=== PATIENT | female | born 1980 | race Caucasian/White ===

== ENCOUNTER 2016-10-28 13:21 | Emergency (ER) | payer OTHER ==
[2016-10-28 13:25] VITALS: BP 118/67; PULSE 87; RESP 20; TEMP 98.1
[2016-10-28] MEDS: HYDROcodone/APAP 5-325MG 1 EACH TAB PO STA (14:47)
[2016-10-28] MEDS: ORPHENADRINE 30 MG/ML 2 ML VIAL IM STA (14:47)
--- NOTE | 2016-10-28 14:49 | ED ---
Back Pain HPI - General Chief Complaint: Back Pain/Injury Stated Complaint: Low back pain Time Seen by Provider: 10/28/16 14:33 Source: patient, RN notes reviewed Limitations: no limitations - History of Present Illness Initial Comments: Patient is a 36-year-old female presents to the emergency room for evaluation of right-sided low back pain. Patient states around 8:00 this morning she was bending over to grab an object and went to stand up and felt a pop sensation in her right lower back. Patient states she's having constant sharp pain in her right lower back that is nonradiating. Patient denies any numbness or tingling in her legs. Patient denies saddle anesthesia. Patient denies urinary or fecal incontinence. Patient states she's having 10 out of 10 pain. Patient states she took 800 mg of ibuprofen with minimal relief of symptoms. Patient denies any recent falls or trauma to her back. Patient denies any other injuries during incident. - Related Data Previous Rx's Medication Instructions Recorded HYDROcodone/APAP 5-325MG [[place] 1 tab PO Q6HR PRN #12 tab 10/28/16 5-325] Orphenadrine [Norflex] 100 mg PO Q12H PRN #12 tablet.er 10/28/16 Allergies Allergy/AdvReac Type Severity Reaction Status Date / Time sulfamethoxazole Allergy Swelling Verified 10/28/16 13:25 [From Bactrim] trimethoprim [From Bactrim] Allergy Swelling Verified 10/28/16 13:25 Review of Systems ROS Statement: Those systems with pertinent positive or pertinent negative responses have been documented in the HPI. ROS Other: All systems not noted in ROS Statement are negative. Past Medical History Past Medical History: No Reported History History of Any Multi-Drug Resistant Organisms: None Reported Past Surgical History: Tubal Ligation Past Psychological History: No Psychological Hx Reported Smoking Status: Never smoker Past Alcohol Use History: None Reported Past Drug Use History: None Reported General Exam - General Exam Comments Initial Comments: Sitting on exam bed, no acute distress. Limitations: no limitations General appearance: alert, in no apparent distress Head exam: Present: atraumatic, normocephalic, normal inspection Eye exam: Present: normal appearance ENT exam: Present: normal exam Neck exam: Present: normal inspection Respiratory exam: Absent: respiratory distress Back exam: Present: normal inspection, paraspinal tenderness (Tenderness on palpating over the right lumbosacral spine. No vertebral tenderness. ) Neurological exam: Present: alert, oriented X3, CN II-XII intact Psychiatric exam: Present: normal affect, normal mood Skin exam: Present: warm, dry, intact, normal color. Absent: rash Course Vital Signs 10/28/16 13:23 Temperature 98.1 F Pulse Rate 87 Respiratory 20 Rate Blood Pressure 118/67 O2 Sat by Pulse 98 Oximetry Medical Decision Making - Medical Decision Making Patient is a 36-year-old female presents emergency room for evaluation of right- sided low back pain. Patient has no neuro deficits. Patient declined x-ray. Advised patient to return for worsening symptoms. Advised patient to follow-up with primary care provider for reevaluation in 1-2 days. Patient states she understands everything that was discussed with her. Case discussed with Dr. Ambrocio. Disposition Clinical Impression: Low back strain Disposition: HOME SELF-CARE Condition: Good Instructions: Acute Low Back Pain (ED) Additional Instructions: Take ibuprofen. Take pain medications as needed for severe pain. Please follow up with primary care provider in 1-2 days. If any new symptom arises or symptoms worsen, return to ER as soon as possible. Prescriptions: HYDROcodone/APAP 5-325MG [[place] 5-325] 1 tab PO Q6HR PRN #12 tab PRN Reason: Pain Orphenadrine [Norflex] 100 mg PO Q12H PRN #12 tablet.er PRN Reason: Pain Referrals: None,Stated [Primary Care Provider] - 1-2 days Time of Disposition: 14:46
== END 2016-10-28 15:05 | disposition home or self-care (01) ==
LOC: EC 13:21
DX: S39.012A Strain of muscle, fascia and tendon of lower back, initial encounter (principal); Z88.1 Allergy status to other antibiotic agents; X50.1XXA Overexertion from prolonged static or awkward postures, initial encounter
CPT/HCPCS: 99283; 96372; J2360